=== PATIENT | female | born 1960 ===

== ENCOUNTER 2017-04-27 06:24 | Day surgery (SDC) | payer OTHER ==
[2017-04-27 06:57] VITALS: BMI 43.0
--- NOTE | 2017-04-27 07:59 | CP.SDSHP ---
Same Day Surgery H & P - History Proposed Procedure: colonoscopy Pre-Op Diagnosis: h/o colon cancer 2013. h/o colon polyps - Previous Medical/Surgical History Cardiac: Hypertension, ASHD/CAD Pulmonary: Emphysema/COPD Endocrine/Metabolic: Diabetes, Obesity Neuro: Backaches, Other (vertigo) Misc: Other Pain: 2.Mild Pain Previous Surgical History: colon cancer. colon polyps. appendix. umbilical hernia - Allergies Allergies: Allergies No Known Allergies Allergy (Verified 04/27/17 06:56) - Physical Exam Vital Signs: Vital Signs 04/27/17 07:21 Temperature 97.5 F L Pulse Rate 80 Respiratory 20 Rate Blood Pressure 137/76 O2 Sat by Pulse 98 Oximetry Mental Status: Alert & Oriented x3 Neuro: WNL Heart: WNL Lungs: WNL GI: Other (midline well healed scar) - Impression Impression: h/o colon cancer. h/o colon polyps Pt. Evaluated Today:Candidate for Anesthesia & Procedure: Yes - Date & Time Date: 04/27/17 Time: 07:59 Short Stay Discharge - Short Stay Discharge Admitting Diagnosis/Reason for Visit: CONSTIPATION UNSPEC, H/O COLON POLYPS Disposition: HOME/ ROUTINE
[2017-04-27] MEDS ORDERED: Lidocaine Hydrochloride 5 ML INJ ONE (08:01)
[2017-04-27] MEDS ORDERED: Midazolam 2 MG/2 ML VIAL ONE (08:01)
[2017-04-27] MEDS ORDERED: Propofol 10 mg/ml Inj (20 ML) ONE (08:08)
[2017-04-27 08:35] VITALS: TEMP 98.9
[2017-04-27 09:33] VITALS: RESP 12; O2SAT 99
[2017-04-27 12:28] VITALS: BP 130/75; PULSE 77
== END 2017-04-27 09:50 | disposition home or self-care (01) ==
LOC: C.ENDO 06:24
PROVIDERS: ATTEND Internal Medicine Gastroenterology
DX: Z12.11 Encounter for screening for malignant neoplasm of colon (principal); K59.00 Constipation, unspecified; Z85.038 Personal history of other malignant neoplasm of large intestine; Z86.010 Personal history of colon polyps; K64.8 Other hemorrhoids
CPT/HCPCS: 45378; 82948; J2250; J2704; J3010